=== PATIENT | female | born 1995 | race Caucasian/White ===

== ENCOUNTER 2019-12-08 07:02 | Emergency (ER) | payer OTHER ==
[~2019-12-08] VITALS: Ht 170.2 cm; Wt 99.8 kg
[2019-12-08 07:13] VITALS: BP 122/76
[2019-12-08 07:49] LABS: BASOPHILS % (AUTO) 0.4 % (0.0-2.0); EOSINOPHILS # (AUTO) 0.1 K/uL (0-0.4); EOSINOPHILS % (AUTO) 1.1 % (0.0-4.0); HEMATOCRIT 44.8 % (36-48); LYMPHOCYTES # (AUTO) 3.6 K/uL (2.5-16.5); LYMPHOCYTES % (AUTO) 42.4 % (20.5-51.1); MEAN CORPUSCULAR HEMOGLOBIN 32 pg (27-31); MEAN CORPUSCULAR HGB CONC 34 g/dL (33-37); MEAN CORPUSCULAR VOLUME 94.2 fL (80-94); MONOCYTES # (AUTO) 0.5 K/uL (0.8-1.0); MONOCYTES % (AUTO) 5.4 % (1.7-9.3); NEUTROPHILS # (AUTO) 4.4 K/uL (1.8-7.7); NEUTROPHILS % (AUTO) 50.7 % (42.2-75.2); PLATELET COUNT (AUTO) 263 K/uL (140-450); RED BLOOD CELL COUNT(AUTO) 4.76 MIL/uL (4.20-5.40); RED CELL DISTRIBUTION WIDTH 13.4 % (11.6-13.7); WHITE BLOOD COUNT (AUTO) 8.6 K/uL (4.8-10.8)
[2019-12-08 07:49] LABS: APPEARANCE,URINE CLEAR (CLEAR); BILIRUBIN,URINE NEGATIVE (NEGATIVE); BLOOD, URINE 3+ (NEGATIVE); COLOR,URINE YELLOW (YELLOW); LEUKOCYTE ESTERASE ,URINE TRACE (NEGATIVE); NITRITE, URINE NEGATIVE (NEGATIVE); UGLUCOSE NEGATIVE (NEGATIVE)
[2019-12-08 08:58] LABS: RBC,URINE 80-100 /HPF (0-5); WBC,URINE 0-5 /HPF (0-5)
[2019-12-08] MEDS ORDERED: IBUPROFEN 600 MG TAB PO ONE (10:05)
[2019-12-08 10:50] VITALS: BP 110/70
== END 2019-12-08 10:50 | disposition home or self-care (01) ==
LOC: MED 07:02
DX: O03.9 Complete or unspecified spontaneous abortion without complication (principal); O26.891 Other specified pregnancy related conditions, first trimester; O34.91 Maternal care for abnormality of pelvic organ, unspecified, first trimester
CPT/HCPCS: 36415; 76801; 76817; 81001; 84702; 85025; 86900; 86901; 99285; Q0092

== ENCOUNTER 2023-11-19 19:01 | Inpatient (IN) | payer OTHER ==
[~2023-11-19] VITALS: Ht 170.2 cm; Wt 103.4 kg
[2023-11-19 19:30] VITALS: BP 109/66; PULSE 94; RESP 16; TEMP 98.2
[2023-11-19 20:08] LABS: BILIRUBIN,URINE NEGATIVE (NEGATIVE); BLOOD, URINE NEGATIVE (NEGATIVE); COLOR,URINE YELLOW (YELLOW); LEUKOCYTE ESTERASE ,URINE 1+ (NEGATIVE); NITRITE, URINE NEGATIVE (NEGATIVE); PH,URINE 6.5 (5.0-9.0); PROTEIN,URINE NEGATIVE (NEGATIVE); UGLUCOSE NEGATIVE (NEGATIVE); UROBILINOGEN,URINE 0.2 EU/dL (0.2 - 1)
[2023-11-19 20:09] LABS: APPEARANCE,URINE SLIGHTLY HAZY (CLEAR)
[2023-11-19 20:10] LABS: RBC,URINE 0 /HPF (0-5); WBC,URINE 0-5 /HPF (0-5)
[2023-11-19 20:11] LABS: BACTERIA,URINE 1+ /HPF (None Seen); MUCUS,URINE None Seen /LPF (None Seen); SQUAMOUS EPITHELIAL CELL,UR 4-10 (MOD) /LPF (0-3 (FEW))
[2023-11-19] MEDS ORDERED: FOLI0.8C PO (20:20)
[2023-11-19] MEDS ORDERED: PREN-543 PO (20:20)
[2023-11-19] MEDS: BETAMETH ACET/BETAMETH NA PH 30 MG/5 ML VIAL IM ONE (20:37)
[2023-11-19] MEDS: NIFEdipine 10 MG CAPLF PO ONE (23:18)
[2023-11-19] MEDS: LACTATED RINGERS 1,000 ML IV ONE (23:48)
[2023-11-20] MEDS: LACTATED RINGERS 1,000 ML IV SCH (00:40)
[2023-11-20] MEDS: NIFEdipine 10 MG CAPLF PO SCH (06:14)
[2023-11-20] MEDS: BETAMETH ACET/BETAMETH NA PH 30 MG/5 ML VIAL IM SCH (20:47)
[2023-11-20] MEDS ORDERED: MEDS-TO-BEDS MC SCH (21:00)
== END 2023-11-21 08:46 | disposition home or self-care (01) | DRG 566 ==
LOC: OBSVTOIN 19:01 → MLD 19:01
PROVIDERS: ADMIT Obstetrics & Gynecology; ATTEND Obstetrics & Gynecology
DX: O60.03 Preterm labor without delivery, third trimester (principal); Z3A.34 34 weeks gestation of pregnancy
CPT/HCPCS: 36415; 76817; 81001; 87086; J0702; Q0092

== ENCOUNTER 2023-12-07 10:22 | Observation (INO) | payer OTHER ==
[~2023-12-07] VITALS: Ht 170.2 cm; Wt 103.4 kg
[~2023-12-07 10:22] MED LIST: FOLI0.8C PO; PREN-543 PO
[2023-12-07 11:25] VITALS: BP 112/62; PULSE 109; RESP 18; TEMP 97.5
[2023-12-07] MEDS ORDERED: MEDS-TO-BEDS MC SCH (21:00)
== END 2023-12-07 14:55 | disposition home or self-care (01) ==
LOC: MLD 10:22
PROVIDERS: ADMIT Obstetrics & Gynecology; ATTEND Obstetrics & Gynecology
DX: O26.893 Other specified pregnancy related conditions, third trimester (principal); R10.9 Unspecified abdominal pain; Z3A.37 37 weeks gestation of pregnancy
CPT/HCPCS: 76815; G0378; Q0092

== ENCOUNTER 2023-12-19 07:49 | Inpatient (IN) | payer OTHER ==
[~2023-12-19] VITALS: Ht 170.2 cm; Wt 106.6 kg
[2023-12-19] MEDS ORDERED: CARBOPROST 250 MCG/ML AMP IM PRN (08:15)
[2023-12-19] MEDS ORDERED: LACTATED RINGERS 500 ML IV ONE (08:15)
[2023-12-19] MEDS ORDERED: METHYLERGONOVINE 0.2 MG/ML AMP IM PRN (08:15)
[2023-12-19 08:34] VITALS: BP 110/52; PULSE 120; RESP 18; TEMP 97.8
[2023-12-19 09:22] LABS: BASOPHILS # (AUTO) 0.1 K/uL (0.00-0.22); BASOPHILS % (AUTO) 0.4 % (0.0-2.0); EOSINOPHILS # (AUTO) 0.1 K/uL (0-0.4); EOSINOPHILS % (AUTO) 0.6 % (0.0-4.0); HEMATOCRIT 39.3 % (36-48); HEMOGLOBIN 12.9 g/dL (12.0-16.0); LYMPHOCYTES # (AUTO) 3.2 K/uL (2.5-16.5); LYMPHOCYTES % (AUTO) 25.2 % (20.5-51.1); MEAN CORPUSCULAR HEMOGLOBIN 32 pg (27-31); MEAN CORPUSCULAR HGB CONC 33 g/dL (33-37); MEAN CORPUSCULAR VOLUME 97.1 fL (80-94); MONOCYTES # (AUTO) 0.8 K/uL (0.8-1.0); MONOCYTES % (AUTO) 6.3 % (1.7-9.3); NEUTROPHILS # (AUTO) 8.5 K/uL (1.8-7.7); NEUTROPHILS % (AUTO) 67.5 % (42.2-75.2); PLATELET COUNT (AUTO) 233 K/uL (140-450); RED BLOOD CELL COUNT(AUTO) 4.05 MIL/uL (4.20-5.40); RED CELL DISTRIBUTION WIDTH 14.4 % (11.6-13.7); WHITE BLOOD COUNT (AUTO) 12.6 K/uL (4.8-10.8)
[2023-12-19 09:26] LABS: APPEARANCE,URINE CLEAR (CLEAR); BILIRUBIN,URINE NEGATIVE (NEGATIVE); BLOOD, URINE NEGATIVE (NEGATIVE); COLOR,URINE YELLOW (YELLOW); LEUKOCYTE ESTERASE ,URINE TRACE (NEGATIVE); NITRITE, URINE NEGATIVE (NEGATIVE); PROTEIN,URINE TRACE (NEGATIVE); UGLUCOSE NEGATIVE (NEGATIVE); UROBILINOGEN,URINE 0.2 EU/dL (0.2 - 1)
[2023-12-19 09:44] LABS: INR 0.9 (0.8-1.2); PARTIAL THROMBOPLASTIN TIME 24.9 secs (22-35.6); PROTHROMBIN TIME 9.5 secs (10.8-13.4)
[2023-12-19 09:51] LABS: ALBUMIN 2.7 g/dL (3.4-5.0); ANION GAP 13.5 (8-16); CARBON DIOXIDE 21.1 mmol/L (21-32); CREATININE 0.7 mg/dL (0.6-1.3); POTASSIUM 3.6 mmol/L (3.5-5.1); TOTAL BILIRUBIN 0.3 mg/dL (0.0-1.0); TOTAL PROTEIN, SERUM 6.5 g/dL (6.4-8.2)
[2023-12-19] MEDS: MISOPROSTOL 25 MCG TAB ONE (10:14)
[2023-12-19 10:20] LABS: BACTERIA,URINE 10-30 (MOD) /HPF (None Seen); RBC,URINE 0-5 /HPF (0-5); SQUAMOUS EPITHELIAL CELL,UR 4-10 (MOD) /LPF (0-3 (FEW)); WBC,URINE 0-5 /HPF (0-5)
[2023-12-19] MEDS: LACTATED RINGERS 1,000 ML IV SCH (16:18)
[2023-12-19] MEDS ORDERED: MEDS-TO-BEDS MC SCH (21:00)
[2023-12-19] MEDS: MISOPROSTOL 25 MCG TAB VG SCH (21:20)
[2023-12-20] MEDS ORDERED: ONDANSETRON 4 MG/2 ML VIAL IVP PRN (02:35)
[2023-12-20] MEDS ORDERED: MORPHINE SULFATE 10 MG/ML VIAL IVP PRN (02:35)
[2023-12-20] MEDS ORDERED: ROPIVACAINE 0.2%/NS PREMIX 200 ML EPI ONE ×2 (08:30→19:28)
[2023-12-20] MEDS ORDERED: OXYTOCIN/0.9 % SODIUM CHLORIDE 500 ML IV ONE (10:39)
[2023-12-20] MEDS: OXYTOCIN/0.9 % SODIUM CHLORIDE 500 ML IV SCH (10:49)
[2023-12-21] MEDS ORDERED: OXYTOCIN 10 UNITS/ML VIAL IM PRN ×2 (01:45)
[2023-12-21] MEDS ORDERED: BENZOCAINE/MENTHOL 20%-0.5% 60 GM CAN TP PRN ×2 (01:45)
[2023-12-21] MEDS ORDERED: MEASLES, MUMPS, AND RUBELLA 1 VIAL SQVAC ONE (01:45)
[2023-12-21] MEDS ORDERED: METHYLERGONOVINE 0.2 MG/ML AMP IM PRN ×2 (01:45)
[2023-12-21] MEDS ORDERED: IBUPROFEN 800 MG TAB PO PRN ×2 (01:45)
[2023-12-21] MEDS ORDERED: METHYLERGONOVINE 0.2 MG TAB PO PRN ×2 (01:45)
[2023-12-21] MEDS: IBUPROFEN 800 MG TAB PO PRN (08:04)
[2023-12-22 06:07] LABS: HEMATOCRIT 38.8 % (36-48); HEMOGLOBIN 13.1 g/dL (12.0-16.0)
== END 2023-12-22 15:20 | disposition home or self-care (01) | DRG 560 ==
LOC: MLD 07:49 → MFCC 12-21 04:15
PROVIDERS: ADMIT Obstetrics & Gynecology; ATTEND Obstetrics & Gynecology
PROC: 10E0XZZ Delivery of Products of Conception, External Approach (ICD-10-PCS; principal; 2023-12-20)
PROC: 0KQM0ZZ Repair Perineum Muscle, Open Approach (ICD-10-PCS; 2023-12-20)
PROC: 10907ZC Drainage of Amniotic Fluid, Therapeutic from Products of Conception, Via Natural or Artificial Opening (ICD-10-PCS; 2023-12-20)
PROC: 3E0R3BZ Introduction of Anesthetic Agent into Spinal Canal, Percutaneous Approach (ICD-10-PCS; 2023-12-20)
PROC: 00HU33Z Insertion of Infusion Device into Spinal Canal, Percutaneous Approach (ICD-10-PCS; 2023-12-20)
DX: O40.3XX0 Polyhydramnios, third trimester, not applicable or unspecified (principal); Z37.0 Single live birth; O70.1 Second degree perineal laceration during delivery; Z3A.39 39 weeks gestation of pregnancy
CPT/HCPCS: 36415; 51702; 59200; 59409; 76815; 80053; 81001; 85018; 85025; 85610; 85730; 86592; 86886; 86900; 86901; 87086; J2270; J2405; J2590; J2795; J7120; Q0092